=== PATIENT | female | born 1950 | race Caucasian/White ===

== ENCOUNTER → 2018-01-17 11:31 | Outpatient (CLI) | payer MEDICARE, OTHER, SELFPAY ==
--- NOTE | 2018-01-17 | XR_ITS ---
XR ribs RT 2V HISTORY: ITS.REASON: RT POSTERIOR CHEST WALL PAIN ORDERING PHYSICIAN: Emanuel Domingo MD PATIENT AGE: 67 years Comparison: None FINDINGS: A frontal view of the chest shows no acute finding. Multiple views of the Left ribs were obtained. No fracture or dislocation. No lytic or blastic change. IMPRESSION: Negative RIBS. If pain persists, consider follow-up exam in 7-[address] with 3-D reformats.
--- NOTE | 2018-01-17 11:56 | XR_ITS ---
XR chest 2V HISTORY: ITS.REASON: RT POSTERIOR CHEST WALL PAIN ORDERING PHYSICIAN: Emanuel Domingo MD PATIENT AGE: 67 years COMPARISON: 05/29/2014 FINDINGS: The cardiomediastinal silhouette and pulmonary vascularity are within normal limits. The lungs are clear without infiltrates, suspicious nodules, or pleural effusions. No acute bony abnormalities. IMPRESSION: Negative chest, no acute finding
== END ==
PROVIDERS: PCP Family Medicine; Visit Provider Family Medicine
DX: R07.89 Other chest pain (principal)
CPT/HCPCS: 71046; 71100

== ENCOUNTER → 2018-02-05 07:13 | Outpatient (CLI) | payer MEDICARE, OTHER, SELFPAY ==
--- NOTE | 2018-02-05 07:15 | NM_ITS ---
SPECT MYOCARDIAL PERFUSION SCAN, REST AND STRESS: EXERCISE STRESS: [facility] REVIEW QGS EF AND WALL MOTION EVALUATION: QPS - PERFUSION EVALUATION: HISTORY: Chest pain PROCEDURE: Rest imaging performed after administration of10.18 millicuries Tc MIBI. Dose administered at7:30 a.m., with imaging thereafter. Stress imaging was then performed following9 minutes of exercise stress. The patient achieved a heart [id number] with projected heart rate of146 . Resting BP152/85 with stress 204/85. At maximum exercise stress,31.2 millicuries Tc MIBI administered at8:45 a.m. with [id number] minutes thereafter. FINDINGS: Perfusion Evaluation: The single slice spect images as well as the [facility] bull's-eye data summary were reviewed. Wall Motion and Ejection Fraction Evaluation: Gated SPECT review and analysis used to evaluate these features. There is a 71 % left ventricular ejection fraction. There seems to be good wall motion Decreased myocardial activity in the anterior wall with both stress and rest. Gated images calculated ejection fraction of 71% with normal wall motion IMPRESSION: Excellent exercise capacity with no EKG abnormalities during exercise. This test is most consistent with breast attenuation and appears to be normal study. Normal ejection fraction normal wall motion
--- NOTE | 2018-02-05 07:34 | HMH.ITSHM ---
METOPROLOL ROSUVASTATIN MONTELUKAST XYZAL DYMISTA CALCIUM PROBIOTIC
== END ==
PROVIDERS: PCP Family Medicine; Visit Provider Family Medicine
DX: R07.2 Precordial pain (principal)
CPT/HCPCS: 78452; 93017; A9502

== ENCOUNTER → 2019-01-30 09:06 | Outpatient (CLI) | payer MEDICARE, OTHER, SELFPAY ==
--- NOTE | 2019-01-30 09:13 | MM_ITS ---
PROCEDURE: MM DIG SCREENING MAMM BI W/CAD CLINICAL INDICATION: SCREENING There is no partial or family history of breast cancer. There has been a previous cyst aspiration left breast for benign disease. COMPARISON: MG SCREENING MAMMOGRAM from 10/20/2002 MG SCREENING MAMMOGRAM from 05/23/2005 DMSB DIG MAMM-SCREEN JULIO CESAR from 07/01/2015 TECHNIQUE: Standard CC and MLO images were obtained. R2 CAD reviewed. FINDINGS: Prominent diffuse fibroglandular densities are seen in both breasts and the findings of bladder when symmetrical. There are scattered benign-appearing micro and macrocalcifications in each breast. There is a mole marker on each breast. There is no suspicious lesion on the no suspicious microcalcifications. There are fatty replaced nodes in both axilla. IMPRESSION: Moderately dense parenchymal pattern with no suspicious lesions seen BI-RAD Category: 2 Benign Finding(s) FOLLOW-UP: 1YR 1 Year Follow-up (A letter has been sent to the patient regarding results of the study.) Dictated by: Dr. Miko Gunderson MD 02/02/2019 20:50 Signed by: <Electronically signed by Dr. Miko Gunderson MD in [place]> 02/02/2019 20:50
--- NOTE | 2019-01-30 09:14 | XR_ITS ---
PROCEDURE: XR DEXA AXIAL SKELETON CLINICAL HISTORY: POST MENOPAUSAL COMPARISON: No exams were available for comparison TECHNIQUE: FINDINGS: L1-L4 density is 1.209 grams/centimeters sq. T-score is 0.2. The radius 33 percent density is 0.726 grams/centimeters sq with a T-score of -1.8. Left femoral neck density is 0.759 grams/centimeters sq with T-score -2 consistent with osteopenia. IMPRESSION: Osteopenia with moderate fracture risk. Treatment advised. Suggest follow-up exam January 2021 Dictated by: Gurmeet Salazar MD 01/30/2019 16:08 Signed by: <Electronically signed by Gurmeet Salazar MD in [place]> 01/30/2019 16:08
== END ==
PROVIDERS: PCP Family Medicine; Visit Provider Family Medicine
DX: Z12.31 Encounter for screening mammogram for malignant neoplasm of breast (principal); Z78.0 Asymptomatic menopausal state
CPT/HCPCS: 77067; 77080

== ENCOUNTER → 2020-03-15 14:39 | Outpatient (CLI) | payer MEDICARE, OTHER, SELFPAY | PROVIDERS: PCP Nurse Practitioner Family; Visit Provider Nurse Practitioner Family | DX: Z03.818 Encounter for observation for suspected exposure to other biological agents ruled out (principal) | CPT/HCPCS: U0003 ==

== ENCOUNTER → 2020-11-11 10:05 | Outpatient (CLI) | payer MEDICARE, OTHER, SELFPAY ==
--- NOTE | 2020-11-11 10:09 | MM_ITS ---
PROCEDURE INFORMATION: Exam: MG Screening 3D Mammography Exam date and time: 11/11/2020 10:09 AM Age: 70 years old Clinical indication: Encounter for screening mammogram for malignant neoplasm of breast TECHNIQUE: Imaging protocol: Screening tomosynthesis and 2D mammography including computer-aided detection (CAD) when performed. COMPARISON: 1. MG MM DIG SCREENING MAMM BI W/CAD 01/30/2019 9:28 AM 2. MG DMSB DIG MAMM-SCREEN JULIO CESAR 07/01/2015 9:53 AM FINDINGS: MAMMOGRAPHY: Breast composition: The breast tissue is heterogeneously dense, which may obscure small masses. Mass: None. Architectural distortion: None. Calcifications: No suspicious calcifications. Asymmetric density: None. Skin thickening: None. Axillary adenopathy: None. IMPRESSION: No mammographic evidence of malignancy. Annual screening is recommended unless otherwise clinically indicated. ASSESSMENT: BI-RADS Category 1: Negative
== END ==
PROVIDERS: PCP Family Medicine; Visit Provider Family Medicine
DX: Z12.31 Encounter for screening mammogram for malignant neoplasm of breast (principal)
CPT/HCPCS: 77063; 77067

== ENCOUNTER → 2021-03-07 08:40 | Outpatient (CLI) | payer MEDICARE, OTHER, SELFPAY ==
--- NOTE | 2021-03-07 08:43 | XR_ITS ---
PROCEDURE: XR DEXA AXIAL SKELETON CLINICAL HISTORY: OSTEOPENIA COMPARISON: JENNI,WILBERT BONE3 BONE DENSITOMETRY(HIP:LT SPINE from 07/01/2015 FINDINGS: The left hip BMD is 0.680 with a T-score of -1.5. The lumbar spine BMD is 1.024 with a T-score of -0.2. Radius 1/3 density is 0.526 with a T-score -2.8. Previously the lowest density was in the left femoral neck with a T-score of -1.7. Previous radius 33 percent T-score was -1.0. IMPRESSION: This patient is considered osteoporotic according to the World Health Organization criteria. Fracture risk is high. Treatment is advised. Based on these results a follow-up exam is recommended in 1 year. Dictated by: Gurmeet Salazar MD 03/07/2021 17:20 Gurmeet Salazar MD in [place] 03/07/2021 17:20
== END ==
PROVIDERS: PCP Family Medicine; Visit Provider Family Medicine
DX: M85.89 Other specified disorders of bone density and structure, multiple sites (principal)
CPT/HCPCS: 77080

== ENCOUNTER → 2021-05-15 13:55 | Outpatient (CLI) | payer MEDICARE, OTHER, SELFPAY ==
[2021-05-15 15:29] LABS: Adenovirus,PCR Not Detected (NotDetected); Bordetella Pertussis Not Detected (NotDetected); Chlamydophila Pneumoniae, PCR Not Detected (NotDetected); Coronavirus 19, PCR Not Detected (NotDetected); Coronavirus 229E Not Detected (NotDetected); Coronavirus NL63 Not Detected (NotDetected); Coronavirus OC43 Not Detected (NotDetected); Coronovirus HKU1,PCR Not Detected (NotDetected); Human Metapneumovirus Not Detected (NotDetected); Influenza A, PCR Not Detected (NotDetected); Influenza AH1, 2009 Not Detected (NotDetected); Influenza AH1, PCR Not Detected (NotDetected); Influenza AH3,PCR Not Detected (NotDetected); Influenza B, PCR Not Detected (NotDetected); Mycoplasma Pneumoniae, PCR Not Detected (NotDetected); Parainfluenza 1, PCR Not Detected (NotDetected); Parainfluenza 2, PCR Not Detected (NotDetected); Parainfluenza 3, PCR Not Detected (NotDetected); Parainfluenza 4, PCR Not Detected (NotDetected); Respiratory Syncytial Virus Not Detected (NotDetected); Rhinovirus/Enterovirus Not Detected (NotDetected)
[2021-05-15 15:49] LABS: Basophils # 0.1 K/mm3 (0-0.2); Basophils % 0.5 % (0.1-2.0); Eosinophils # 0.2 K/mm3 (0.0-0.4); Eosinophils % 1.7 % (0.1-12.0); Hematocrit 43.1 % (37.0-47.0); Hemoglobin 14.6 g/dL (12.2-16.2); Lymphocytes # 1.8 K/mm3 (0.7-4.5); Mean Corpuscular HGB Conc 33.9 g/dL (31.8-35.4); Mean Corpuscular Hemoglobin 29.7 pg (27.0-31.2); Mean Corpuscular Volume 87.4 fl (81-99); Monocytes # 0.7 K/mm3 (0.1-1.0); Monocytes % 6.9 % (1.7-9.3); Neutrophils # 7.4 K/mm3 (1.8-7.8); Platelet Count 259 K/mm3 (142-424); Red Blood Count 4.93 M/mm3 (4.20-5.40); Red Cell Distribution Width 12.8 % (11.5-17.5); White Blood Count 10.1 K/mm3 (4.8-10.8)
== END ==
PROVIDERS: PCP Nurse Practitioner Family; Visit Provider Nurse Practitioner Family
DX: Z20.822 Contact with and (suspected) exposure to COVID-19 (principal)
CPT/HCPCS: 36415; 85025; 87581; 87632; 87798; C9803; U0003; U0005

== ENCOUNTER → 2021-12-15 09:37 | Outpatient (CLI) | payer MEDICARE, OTHER, SELFPAY ==
--- NOTE | 2021-12-15 09:42 | MR_ITS ---
FINAL REPORT CLINICAL HISTORY: VERTIGO. DIZZINESS AND OCCIPITAL HEAD TWITCHING FOR 9 MONTHS. NO INJURY OR HEADACHE. MILD HEADACHE. 15ML PROHANCE GIVEN. FINDINGS: Multiplanar MR imaging of the brain was performed without and with contrast. There is no evidence of intracranial hemorrhage or mass. There are mild to moderate scattered foci in the deep white matter, particularly the subcortical region. No abnormal extra-axial fluid collection is seen. The ventricular size is within normal limits. There is no evidence of shift of the midline structures. The posterior fossa and brainstem have an unremarkable appearance. No area of abnormal restricted diffusion is identified. No abnormal contrast enhancement is seen. The 7th and 8th nerve root complexes appear intact. IMPRESSION: Mild to moderate changes of chronic microvascular ischemia. Reviewed, Interpreted and Dictated by Ellis Painting MD Transcribed by Carola Vu Authenticated and [facility]
[2021-12-15 10:01] LABS: Blood Urea Nitrogen 13 mg/dl (7-17); Estimated Glomerular Filt Rate 82 ml/min (>60); GFR (African American) 100 ML/MIN (>60)
== END ==
PROVIDERS: PCP Nurse Practitioner Family; Visit Provider Family Medicine
DX: R42 Dizziness and giddiness (principal); R20.2 Paresthesia of skin
CPT/HCPCS: 36415; 70553; 82565; 84520; A9576

== ENCOUNTER → 2022-03-26 08:12 | Outpatient (CLI) | payer MEDICARE, OTHER, SELFPAY ==
--- NOTE | 2022-03-26 08:16 | XR_ITS ---
FINAL REPORT TECHNIQUE: Bone densitometry calculations of the lumbar spine, forearm and hip were obtained. CLINICAL HISTORY: osteoporosis COMPARISON: 03/07/2021 FINDINGS: DEXA BONE DENSITY AXIAL SKELETON Using L1-4, the bone mineral density of the spine is 1.052 g/cm2, corresponding to T-score of 0.0. Previously measured 1.024 g/cm2, corresponding to T-score of -0.2. Note these values may be falsely elevated secondary to hypertrophic changes. Using the left hip, the bone mineral density of the femoral neck is 0.662 g/cm2, corresponding to a T-score of -1.7. Previously measured 0.680 g/cm2, corresponding to T-score of -1.5. Using the right forearm, the bone mineral density of the distal 1/3 is 0.552 g/cm2, corresponding to a T-score of -2.4. Previously measured 0.526 g/cm2, corresponding to T-score of -2.8. NOTE: T-score: Standard deviation compared with peak bone mass of young adult mean. *Following the recommendations of the International Society of Bone densitometry, classification of hip BMD is based on the lower of two T-scores; total hip or femoral neck. IMPRESSION: Diminished bone mineral density of the forearm and hip consistent with osteopenia. FRAX 10 year fracture risk is 3.8% for a hip fracture and 21% for a major osteoporotic fracture. Reviewed, Interpreted and Dictated by Rigoberto Bose III, MD Transcribed by Jacklyn Mendoza Authenticated and [facility]
--- NOTE | 2022-03-26 08:16 | MM_ITS ---
PROCEDURE INFORMATION: Exam: MG Bilateral Screening 3D Mammography Exam date and time: 03/26/2022 8:19 AM Age: 71 years old Clinical indication: Screening examination. No family history of breast cancer. TECHNIQUE: Imaging protocol: Bilateral Screening tomosynthesis and 2D mammography including computer-aided detection (CAD) when performed. COMPARISON: 1. MG MM DIG SCREENING MAMM BI W/CAD 11/11/2020 10:43 AM 2. MG MM DIG SCREENING MAMM BI W/CAD 01/30/2019 9:28 AM 3. MG DMSB DIG MAMM-SCREEN JULIO CESAR 07/01/2015 9:53 AM 4. MG SCREENING MAMMOGRAM 05/23/2005 11:48 AM FINDINGS: MAMMOGRAPHY: Breast composition: The breasts are heterogeneously dense, which may obscure small masses. Mass: No suspicious mass. Architectural distortion: None. Calcifications: No suspicious calcifications. Asymmetric density: None. Skin thickening: None. Axillary adenopathy: None. IMPRESSION: No mammographic evidence of malignancy. Annual screening is recommended unless otherwise clinically indicated. ASSESSMENT: BI-RADS Category 1: Negative
== END ==
PROVIDERS: PCP Family Medicine; Visit Provider Family Medicine
DX: M81.0 Age-related osteoporosis without current pathological fracture (principal)
CPT/HCPCS: 77063; 77067; 77080

== ENCOUNTER 2022-03-26 17:23 | Emergency (ER) | payer MEDICARE, OTHER, SELFPAY ==
[2022-03-26 17:24] VITALS: BP 141/92; PULSE 94; RESP 18; TEMP 37; O2SAT 97; BMI 29.2
[2022-03-26 19:43] LABS: UTC Influenza A Antigen Negative (Negative); UTC Influenza B Antigen Negative (Negative); UTC Strep Screen (Rapid) Negative (Negative)
--- NOTE | 2022-03-26 19:49 | EXP.UTC ---
Discharge Plan Disposition Patient Disposition: Home, Self-Care Condition: Good Prescriptions Prescriptions: New cefdinir 300 mg capsule 300 mg PO BID Qty: 20 0RF Referrals Follow up/Referrals: Emanuel Domingo MD [Primary Care Provider] - See instructions Activity Restrictions/Add. Instructions Additional Instructions/Restrictions: *Monitor Temp, Over the counter Motrin or Tylenol as directed/as needed Tylenol every 4 hours and Motrin every 6 hours (as long as your family doctor has told you that you can take it) for fever or pain. and straight to ER if unable to lower temp less than 101.0 after medication given *Warm salt water gargles may help to soothe the throat *Throat Lozenges? *Warm fluids like tea with honey may help to soothe the throat? *Sleep elevated *Humidifier/Vaporizer Take medication as prescribed Your throat swab was sent for culture. Those results are typically sent to your primary care. Be sure to follow up in 2-3 days with your family doctor/primary care physician if no improvement so they can review those result and treat if necessary. If you don?t have a primary care doctor, I recommend you get one but in the mean time, you will have to return to a walk in clinic Follow up IMMEDIATELY for new or worsening symptoms or no Noticeable improvement over the next 48-72 hours. 911 for difficulty breathing or swallowing You were tested for today for COVID19 your test result should be back in the next 24-48 hours, you may check your results on the [facility] Clinical Impressions Clinical Impression: Otitis media Instructions Patient Instructions: Middle Ear Infection, Cefdinir Discharge ED Provider: Aliya Larsen [facility] HPI General Stated complaint: chills,Sore throat,cough,KRISHNA congestion Mode of Arrival: Ambulatory Source of Information: Patient Limitations: No Limitations Time Seen by Provider: 03/26/22 19:49 Description of Symptoms (Recalled from Triage Doc. by RN): fever throat body ache cough HEENT Symptoms (Recalled from RN notes): Yes Resp Symptoms (Recalled from RN notes): Yes Skin Symptoms (Recalled from RN notes): No MS Symptoms (Recalled from RN notes): No Functional Status (Recalled from RN notes): n/a History of Present Illness Provider Complaint: Patient states that she started feeling bad on Saturday having fever, cough, sore throat, sinus congestion and pressure pain in both ears and feeling achy all over States that today she was still feeling bad so she was worried that she may have strep or flu Related Data Previous Rx's Medication Instructions Recorded cefdinir 300 mg capsule 300 mg PO BID #20 caps 03/26/22 Allergies Allergy/AdvReac Type Severity Reaction Status Date / Time No Known Allergies Allergy Verified 03/26/22 19:48 Worker's Comp Is this a Worker's Comp case?: No PFSH PFSH Social History Smoking Status: Never smoker alcohol intake: never current occupational status: retired Travel in the last 8 weeks: None ROS Obtained: Yes All systems reviewed & no additional complaints except as documented and Yes Systems reviewed as appropriate & no additional complaints except as documented Constitutional Constitutional: Reports system reviewed and no additional complaints, except as documented, Reports as per HPI, Reports body ache, Reports chills, Reports fever(s) and Reports headache(s) ENT Ears, Nose, Mouth, and Throat: Reports system reviewed and no additional complaints, except as documented, Reports as per HPI, Reports otalgia, Reports headache(s), Reports nasal congestion, Reports sinus pressure and Reports sore throat Cardiovascular Cardiovascular: Reports system reviewed and no additional complaints, except as documented and Reports as per HPI Respiratory Respiratory: Reports system reviewed and no additional complaints, except as documented and Reports as per HPI Neurologic Neurologic: Reports headach
[2022-03-26 20:13] VITALS: BP 141/92; PULSE 94; RESP 18; TEMP 37; O2SAT 97
== END 2022-03-26 20:13 | disposition home or self-care (01) ==
PROVIDERS: Emergency Provider Nurse Practitioner; PCP Family Medicine
DX: U07.1 COVID-19 (principal); H66.93 Otitis media, unspecified, bilateral; J02.9 Acute pharyngitis, unspecified; R50.9 Fever, unspecified; M79.10 Myalgia, unspecified site; R51.9 Headache, unspecified
CPT/HCPCS: 77063; 77067; 77080; 87804; 87880; 99213; C9803; G0463; U0003; U0005

== ENCOUNTER → 2022-10-16 09:03 | Outpatient (CLI) | payer MEDICARE, OTHER, SELFPAY ==
--- NOTE | 2022-10-16 09:07 | US_ITS ---
FINAL REPORT CLINICAL HISTORY: SUPRAPUBIC PAIN FINDINGS: Transvaginal sonographic images of the pelvis were obtained. The uterus measures 6 X 3.7 X 2.3 cm. The endometrium measures 3 mm, which is within normal limits. No uterine mass is identified. The right ovary measures 2.2 cm in length and left ovary measures 1.5 cm in length. Normal blood flow seen to the ovaries. There is a 0.9 cm right ovarian cyst. There is no evidence of free fluid. IMPRESSION: Small cyst in the right ovary. Reviewed, Interpreted and Dictated by Rigoberto Bose III, MD Transcribed by Candelaria Yadav Authenticated and [facility]
--- NOTE | 2022-10-16 09:07 | US_ITS ---
FINAL REPORT CLINICAL HISTORY: URINARY FREQUENCY FINDINGS: ULTRASOUND URINARY BLADDER Limited images of the urinary bladder were obtained. No mass is identified. Normal ureteral jets are visualized. Filled bladder volume: 178.45 mL Postvoid residual: 20 mL IMPRESSION: Small amount of postvoid residual. Otherwise normal exam. Reviewed, Interpreted and Dictated by Rigoberto Bose III, MD Transcribed by Candelaria Yadav Authenticated and . [facility]
== END ==
PROVIDERS: PCP Family Medicine; Visit Provider Physician Assistant
DX: R10.2 Pelvic and perineal pain (principal); R35.0 Frequency of micturition
CPT/HCPCS: 76830; 76857

== ENCOUNTER → 2023-03-27 09:30 | Outpatient (CLI) | payer MEDICARE, OTHER, SELFPAY ==
--- NOTE | 2023-03-27 09:34 | MM_ITS ---
PROCEDURE INFORMATION: Exam: MG Bilateral Screening 3D Mammography Exam date and time: 03/27/2023 9:39 AM Age: 72 years old Clinical indication: Screening mammogram TECHNIQUE: Imaging protocol: Bilateral Screening tomosynthesis and 2D mammography including computer-aided detection (CAD) when performed. COMPARISON: 1. MG MM DIG SCREENING MAMM BI W/CAD 03/26/2022 8:19 AM 2. MG MM DIG SCREENING MAMM BI W/CAD 11/11/2020 10:43 AM 3. MG MM DIG SCREENING MAMM BI W/CAD 01/30/2019 9:28 AM 4. MG DMSB DIG MAMM-SCREEN JULIO CESAR 07/01/2015 9:53 AM FINDINGS: MAMMOGRAPHY: Breast composition: There are scattered areas of fibroglandular density. Mass: None. Architectural distortion: No new or suspicious architectural distortion. Calcifications: Stable benign-appearing calcifications are present. No new or suspicious cluster of microcalcifications have developed. Asymmetric density: No new or suspicious asymmetric density is present Skin thickening: None. Axillary adenopathy: None. IMPRESSION: No mammographic evidence of malignancy. Recommend annual screening mammography unless otherwise clinically indicated. ASSESSMENT: BI-RADS category 2: Benign
== END ==
PROVIDERS: PCP Family Medicine; Visit Provider Family Medicine
DX: Z12.31 Encounter for screening mammogram for malignant neoplasm of breast (principal)
CPT/HCPCS: 77063; 77067

== ENCOUNTER 2024-02-27 10:01 | Outpatient (CLI) | payer MEDICARE, OTHER, SELFPAY ==
--- NOTE | 2024-02-27 10:07 | XR_ITS ---
FINAL REPORT CLINICAL HISTORY: right knee pain COMPARISON: None FINDINGS: RIGHT KNEE Three views demonstrate no acute fracture or dislocation. The joint spaces appear normal. No acute soft tissue abnormality is seen. IMPRESSION: No acute process. Reviewed, Interpreted and Dictated by Ti Delvalle MD Transcribed by Brittney Medina Authenticated and [facility]
== END 2024-02-27 23:59 | disposition home or self-care (01) ==
LOC: RAD 10:04
PROVIDERS: PCP Family Medicine; Visit Provider Physician Assistant Surgical
DX: M25.561 Pain in right knee (principal); M17.11 Unilateral primary osteoarthritis, right knee
CPT/HCPCS: 73562

== ENCOUNTER 2024-04-01 09:06 | Outpatient (CLI) | payer MEDICARE, OTHER, SELFPAY ==
--- NOTE | 2024-04-01 09:10 | XR_ITS ---
FINAL REPORT TECHNIQUE: Bone densitometry calculations of the lumbar spine and left hip were obtained. CLINICAL HISTORY: post menopausal FINDINGS: Using L1-4, the bone mineral density of the spine is 1.040 g/cm2, corresponding to T-score of -0.1. Using the left hip, the bone mineral density of the femoral neck is 0.735 g/cm2, corresponding to a T-score of -1.0. Using the right hip, the bone mineral density of the femoral neck is 0.540 g/cm?, corresponding to a T-score of -2.6. NOTE: T-score: Standard deviation compared with peak bone mass of young adult mean. *Following the recommendations of the International Society of Bone Densitometry, classification of hip BMD is based on the lower of two T-scores; total hip or femoral neck. IMPRESSION: Osteoporosis: Lowest T-score is at or below -2.5. This patient's T-score meets the World Health Organization criteria for osteoporosis. However, as the other scores are within normal limits, this is of uncertain significance and may represent artifact. Recommend follow-up bone density determination. Reviewed, Interpreted and Dictated by Rigoberto Bose III, MD Transcribed by Silvia Carballo Authenticated and . [facility]
--- NOTE | 2024-04-01 09:10 | MM_ITS ---
PROCEDURE INFORMATION: Exam: MG Bilateral Screening 3D Mammography Exam date and time: 04/01/2024 8:56 AM Age: 73 years old Clinical indication: Screening examination TECHNIQUE: Imaging protocol: Bilateral Screening tomosynthesis and 2D mammography including computer-aided detection (CAD) when performed. COMPARISON: 1. MG MM DIG SCREENING MAMM BI W/CAD 03/27/2023 9:39 AM 2. MG MM DIG SCREENING MAMM BI W/CAD 03/26/2022 8:19 AM FINDINGS: MAMMOGRAPHY: Breast composition: There are scattered areas of fibroglandular density. Mass: None. Architectural distortion: None. Calcifications: No suspicious calcifications. Asymmetric density: None. Skin thickening: None. Axillary adenopathy: None. IMPRESSION: No mammographic evidence of malignancy. Annual screening is recommended unless otherwise clinically indicated. ASSESSMENT: BI-RADS Category 1: Negative.
== END 2024-04-01 23:59 | disposition home or self-care (01) ==
LOC: RAD 09:06
PROVIDERS: PCP Family Medicine; Visit Provider Family Medicine
DX: M81.0 Age-related osteoporosis without current pathological fracture (principal); Z12.31 Encounter for screening mammogram for malignant neoplasm of breast; M85.80 Other specified disorders of bone density and structure, unspecified site
CPT/HCPCS: 77063; 77067; 77080

== ENCOUNTER 2024-07-16 03:07 | Emergency (ER) | payer MEDICARE, OTHER, SELFPAY ==
[2024-07-16] VITALS (14 sets, daily range): BP systolic 112–165; BP diastolic 62–76; PULSE 63–89; RESP 15–22; TEMP 36.6; O2SAT 94–99; BMI 30.2
--- NOTE | 2024-07-16 03:10 | ECG_ITS ---
APPROVED REPORT Exam: Resting ECG HR:82 bpm ECG Measurements Heart Rate [address] 137 P 59 QRSd 93 QRS 44 QT 368 T 65 QTc 406 Conclusion SINUS RHYTHM LOW QRS VOLTAGE IN PRECORDIAL LEADS [QRS DEFLECTION < 1.0 mV IN CHEST LEADS] POSSIBLE RIGHT VENTRICULAR CONDUCTION DELAY [RSR (QR) IN V1/V2] No STEMI Electronically signed by : DAVID COX, 07/16/2024 07:20:35
--- NOTE | 2024-07-16 03:23 | CT_ITS ---
PROCEDURE INFORMATION: Exam: CTA Chest With Contrast Exam date and time: 07/16/2024 4:16 AM Age: 74 years old Clinical indication: Pain; Chest pressure; Additional info: Chest pain radiating across shoulders TECHNIQUE: Imaging protocol: Computed tomographic angiography of the chest with contrast. Exam focused on the arteries. 3D rendering (Not supervised by radiologist): MIP and/or 3D reconstructed images were created by the technologist. Radiation optimization: All CT scans at this facility use at least one of these dose optimization techniques: automated exposure control; mA and/or kV adjustment per patient size (includes targeted exams where dose is matched to clinical indication); or iterative reconstruction. Contrast material: ISOVUE; Contrast volume: 80 ml; Contrast route: INTRAVENOUS (IV); COMPARISON: CR Chest 07/16/2024 3:58 AM FINDINGS: Pulmonary arteries: Normal. No pulmonary emboli. Aorta: Unremarkable. No aortic aneurysm. No aortic dissection. Lungs: Unremarkable. No consolidation. No masses. Pleural spaces: Unremarkable. No pneumothorax. No pleural effusion. Heart: Aortic valve calcifications. Coronary arteries: Coronary atherosclerosis. Lymph nodes: Unremarkable. No enlarged lymph nodes. Gallbladder and biliary ducts: Cholecystectomy. Bones/joints: Unremarkable. No acute fracture. Soft tissues: Unremarkable. IMPRESSION: 1. No evidence of pulmonary embolus. 2. Coronary atherosclerosis.
--- NOTE | 2024-07-16 03:23 | XR_ITS ---
PROCEDURE INFORMATION: Exam: XR Chest Exam date and time: 07/16/2024 3:58 AM Age: 74 years old Clinical indication: Pain; Chest pressure; Additional info: Chest pain TECHNIQUE: Imaging protocol: Radiologic exam of the chest. Views: 2 views. COMPARISON: CR CXR2V XR chest 2V 01/17/2018 12:04 PM FINDINGS: Lungs: Unremarkable. No consolidation. Pleural spaces: Unremarkable. No pleural effusion. No pneumothorax. Heart/Mediastinum: Unremarkable. No cardiomegaly. Bones/joints: Unremarkable. IMPRESSION: No acute findings.
[2024-07-16] MEDS: NITROGLYCERIN 0.4MG SL TABLET 0.4 MG SL (03:25)
[2024-07-16] MEDS: ASPIRIN 81MG CHEWABLE TABLET 324 MG PO (03:25)
[2024-07-16] MEDS: BELLADONNA ALKALOIDS 60 ML ML PO (03:26)
--- NOTE | 2024-07-16 03:36 | [facility].EDCP ---
Discharge Plan Disposition Patient Disposition: Home, Self-Care Condition: Good Prescriptions Prescriptions: No Action metoprolol succinate 50 mg tablet extended release 24 hr 50 mg PO DAILY rosuvastatin 10 mg tablet 10 mg PO DAILY montelukast 10 mg tablet 10 mg PO DAILY levocetirizine [Xyzal] 5 mg tablet 5 mg PO DAILY fluticasone propionate [Allergy Relief (fluticasone)] 50 mcg/actuation spray,suspension 1 spray intranasal DAILY Rx Instructions: administer into each nostril azelastine 205.5 mcg (0.15 %) spray,non-aerosol 1 spray intranasal HS Rx Instructions: administer into each nostril meloxicam 7.5 mg tablet 7.5 mg PO DAILY Qty: 30 2RF Referrals Follow up/Referrals: Provider,MD Radha [Primary Care Provider] - See instructions Darinel Phillips MD [Staff Physician] - See instructions (Chest pain, atherosclerosis seen on CT scan, reassuring cardiac workup in ER) Activity Restrictions/Add. Instructions Additional Instructions/Restrictions: You were evaluated in the ER and are appropriate for discharge at this time. Continue your home medications as prescribed. Please make an appointment with your primary care doctor for immediate reevaluation. Also call the elementary art teacher for an appointment. You have been referred to them for this purpose. Return to the ER with new, worsening, or otherwise concerning symptoms. Clinical Impressions Clinical Impression: Chest pain, Coronary atherosclerosis Print Language Print Language: Greenlandic Discharge ED Provider: Marielena Spain General Chief Complaint: Chest Pain Stated Complaint: chest pain Time Seen by Provider: 07/16/24 03:14 Mode of Arrival: Ambulatory Source of Information: Patient Limitations: No Limitations Description of Symptoms (Recalled from ER Triage Doc. by RN): Patient reports chest and back pain that also extends into the neck. States she has midsternal chest pressure. States she had this same pain around two weeks ago. History of Present Illness HPI narrative: 74-year-old female with history of hypertension and high cholesterol but no previous known cardiac history, no stroke, presents to the ER with chest and back pain. She reports she had this same pain approximately 2 weeks ago that resolved after taking Pepcid. She states tonight her pain started around midnight, approximately 3 hours prior to arrival. She states the pain feels like pressure in her chest and she has discomfort across both of her shoulders and back. She does not describe a tearing pain, the pain does not radiate up into her neck or down into her abdomen, she denies dizziness, numbness, tingling, weakness, difficulty breathing, nausea, vomiting, abdominal pain, diarrhea, fevers, chills, or other associated symptoms. Patient states when her pain was persistent, she got up to check her blood pressure which was elevated in the 170s, she was going to take Pepcid but forgot and instead brought herself to the ER accompanied by her for further evaluation. She does report her pain is currently a 5 out of 10 and has improved some since it started. Related Data Home Medications ?Medication ?Instructions ?Recorded ?Confirmed azelastine 205.5 mcg (0.15 %) 1 spray intranasal HS 07/06/22 07/16/24 nasal spray fluticasone propionate 50 1 spray intranasal DAILY 07/06/22 07/16/24 mcg/actuation nasal spray,suspension (Allergy Relief (fluticasone)) levocetirizine 5 mg tablet (Xyzal) 5 mg PO DAILY 07/06/22 07/16/24 metoprolol succinate 50 mg 50 mg PO DAILY 07/06/22 07/16/24 tablet,extended release 24 hr montelukast 10 mg tablet 10 mg PO DAILY 07/06/22 07/16/24 rosuvastatin 10 mg tablet 10 mg PO DAILY 07/06/22 07/16/24 Previous Rx's ?Medication ?Instructions ?Recorded meloxicam 7.5 mg tablet 7.5 mg PO DAILY #30 tabs 02/27/24 Allergies Allergy/AdvReac Type Severity Reaction Status Date / Time sulfamethoxazole (From AdvReac Mild Verified 02/27/24 11:07 Bactrim) trimethoprim (From Bactrim) AdvReac Mild Verified 02/27/24 11:07 [facility] Disclaimer: The information contained in this section may have been updated after the patient was seen, as this information can be updated by other users. Medical History Ovarian cyst, right Vulvar abscess Cyst of breast Allergies Asthma Hyperlipemia History of hypertension Surgical History History of appendectomy History of cholecystectomy History of right hip replacement Family History Other Asthma Cancer Coronary artery disease Diabetes Heart attack Hyperlipidemia Hypertension Kidney disease Social History Smoking Status: Never smoker alcohol intake: never current occupational status: retired Travel in the last 8 weeks: None Other Medical History Have you received the Pneumonia Vaccine: Yes ROS Obtained: Yes Systems reviewed as appropriate & no additional complaints except as documented Per HPI Physical Exam General General appearance: alert and in no apparent distress Head Head exam: atraumatic and normocephalic Eye Eye exam: Present PERRL and EOMI ENT ENT exam: Present mucous membranes moist Neck Neck exam: Present normal inspection, full ROM and other (Tenderness along trapezius muscles bilaterally with no evidence of injury, no midline tenderness, no pain up into the neck) Chest Chest inspection: Present symmetric chest wall rise and tenderness (Tenderness along lower left sternal border without traumatic findings) Respiratory Respiratory exam: Present normal lung sounds bilaterally; Absent respiratory distress, wheezes or stridor Cardiovascular Cardiovascular exam: Present regular rate and normal rhythm Abdominal Exam Abdominal exam: Present soft; Absent distention or tenderness Extremities Exam Extremities exam: Present full ROM Neurological Exam Neurological exam: Present alert and oriented X3; Absent motor sensory deficit Psychiatric Psychiatric exam: Present normal affect and normal mood Skin Skin exam: Present warm and dry HEART Score HEART Score HEART Score assessment performed?: Yes History (anamnesis): Slightly suspicious ECG: Non-specific disturbance Age: >65 years Risk factors: 1-2 risk factors Troponin: </= normal limit HEART Score: 4 Critical Care Critical Care Time Critical Care Time: No Medical Decision Making Medical Records Medical records reviewed: Yes I reviewed the patient's medical records. MR Comment: Most recent visit in our system was with Dr. Conn with orthopedics in February 2024. Patient was evaluated for right knee pain. Patient was identified to have osteoarthritis and opted for anti-inflammatories instead of steroid injection at that time. Octavio Inquiry Pt receiving controlled substance: No Vital Signs Vital Signs: 07/16/24 03:07 07/16/24 03:11 07/16/24 03:23 Temperature 97.9 F Temperature Source Oral Pulse Rate 77 89 Pulse Rate [Right Radial] 89 Respiratory Rate 18 Blood Pressure 165/76 H Blood Pressure [Right Arm] 165/76 H Blood Pressure Mean [Right Arm] 105 Blood Pressure Source [Right Arm] Automatic Cuff Blood Pressure Position [Right Arm] Supine 02 Sat by Pulse Oximetry 99 99 Oxygen Delivery Method Room Air 07/16/24 03:31 07/16/24 03:45 07/16/24 04:00 Temperature Temperature Source Pulse Rate 72 63 64 Pulse Rate [Right Radial] Respiratory Rate 22 15 16 Blood Pressure 129/76 129/76 112/68 Blood Pressure [Right Arm] Blood Pressure Mean [Right Arm] Blood Pressure Source [Right Arm] Blood Pressure Position [Right Arm] 02 Sat by Pulse Oximetry 94 L 94 L 94 L Oxygen Delivery Method Room Air 07/16/24 04:30 07/16/24 05:01 07/16/24 05:30 Temperature Temperature Source Pulse Rate 73 76 73 Pulse Rate [Right Radial] Respiratory Rate Blood Pressure 138/71 122/69 121/69 Blood Pressure [Right Arm] Blood Pressure Mean [Right Arm] Blood Pressure Source [Right Arm] Blood Pressure Position [Right Arm] 02 Sat by Pulse Oximetry 94 L 97 99 Oxygen Delivery Method Room Air Room Air 07/16/24 05:45 07/16/24 06:00 07/16/24 06:30 Temperature Temperature Source Pulse Rate 69 69 68 Pulse Rate [Right Radial] Respiratory Rate Blood Pressure 115/62 123/72 Blood Pressure [Right Arm] Blood Pressure Mean [Right Arm] Blood Pressure Source [Right Arm] Blood Pressure Position [Right Arm] 02 Sat by Pulse Oximetry 96 98 98 Oxygen Delivery Method Room Air 07/16/24 07:00 Temperature Temperature Source Pulse Rate 65 Pulse Rate [Right Radial] Respiratory Rate Blood Pressure 120/67 Blood Pressure [Right Arm] Blood Pressure Mean [Right Arm] Blood Pressure Source [Right Arm] Blood Pressure Position [Right Arm] 02 Sat by Pulse Oximetry 98 Oxygen Delivery Method Room Air Lab Data Labs: Lab Results 07/16/24 03:10: WBC 11.6 H, RBC 5.19, Hgb 15.2, Hct 44.7, MCV 86.1, MCH 29.3, MCHC 34.0, RDW 12.6, Plt Count 260, MPV 10.4, Neut % (Auto) 61.2, Lymph % (Auto) 27.6, Routt % (Auto) 8.9, Eos % (Auto) 1.6, Baso % (Auto) 0.4, Neut # (Auto) 7.1, Lymph # (Auto) 3.2, Routt # (Auto) 1.0, Eos # (Auto) 0.2, Baso # (Auto) 0.1, PT 10.1, INR 0.89 L, Sodium 142, Potassium 3.9, Chloride 103, Carbon Dioxide 26, Anion Gap 16.9 H, BUN 14, Creatinine 0.80, Estimated Creat Clear 58, Estimated GFR 70, Est GFR ( Amer) 85, Glucose 121 H, Calcium 9.3, Total Bilirubin 1.6 H, AST 34, ALT 22, Alkaline Phosphatase 84, Troponin I < 0.01, NT-Pro-B Natriuret Pep 71.3, Total Protein 7.3, Albumin 4.5, Globulin 2.8, Albumin/Globulin Ratio 1.6 07/16/24 06:03: Troponin I < 0.01 07/16/24 03:10 07/16/24 03:10 Response Orders (Tests/Meds): ED MEDICATIONS Generic Name Dose Route Start Last Admin Trade Name Freq PRN Reason Stop Dose Admin Nitroglycerin 0.4 mg 07/16/24 03:23 07/16/24 03:25 Nitroglycerin 0.4mg Sl Tablet SL 07/17/24 03:23 0.4 mg Q5MINP PRN Administration Chest Pain Discontinued Medications Generic Name Dose Route Start Last Admin Trade Name Freq PRN Reason Stop Dose Admin Aspirin 324 mg 07/16/24 03:23 07/16/24 03:25 Aspirin 81mg Chewable Tablet PO 07/16/24 03:24 324 mg ONCE ONE Administration Belladonna Alkaloids 60 ml 07/16/24 03:23 07/16/24 03:26 Belladonna Alkaloids 60 Ml Ml PO 07/16/24 03:24 60 ml ONCE ONE Administration Iopamidol 80 ml 07/16/24 04:21 07/16/24 04:22 Iopamidol-370 (76%);100ml Bottle IV 07/16/24 04:22 80 ml ONCE ONE Administration Sodium Chloride 50 ml 07/16/24 04:21 07/16/24 04:23 0.9 % Sodium Chloride 50 Ml Vial IV 07/16/24 04:22 50 ml ONCE ONE Administration Sodium Chloride 10 ml 07/16/24 04:21 07/16/24 04:22 Sodium Chloride 0.9% 10ml Syr (Rad Only) IV 07/16/24 04:22 10 ml ONCE ONE Administration ORDERS Category Date Time Status CTA Chest [CT angio chest - dissection] Stat Cat Scan 07/16/24 03:23 Completed CXR 2 view (NOT portable) [XR chest 2V] Stat Exams 07/16/24 03:23 Completed Complete Blood Count Auto Diff Stat Lab 07/16/24 03:10 Completed Comprehensive Metabolic Panel Stat Lab 07/16/24 03:10 Completed NT Pro Brain Natriuretic Pep. Stat Lab 07/16/24 03:10 Completed Prothrombin Time INR Stat Lab 07/16/24 03:10 Completed Troponin I Q3H Lab 07/16/24 06:03 Completed Troponin I Q3H Lab 07/16/24 09:30 Ordered Troponin I Stat Lab 07/16/24 03:10 Completed MDM Narrative Medical Decision Narrative: In summary, this 74-year-old female presents to the emergency department today with chest pain as well as pain in the back of the shoulders. On initial evaluation patient is hemodynamically stable, afebrile, she does have tenderness to palpation along the lower left sternal border without evidence of trauma, patient has tenderness of the bilateral trapezius without evidence of trauma, no tenderness of the neck, cardiopulmonary exam benign, no peripheral edema, abdominal exam benign. Differential diagnosis includes but is not limited to ACS, PE, dissection, muscle spasm, musculoskeletal etiology, esophageal spasm, electrolyte abnormality, dehydration. Based on these concerns, I ordered serum labs, cardiac workup, CT angiography of the chest. ECG personally interpreted demonstrates normal sinus rhythm, rate 82, normal axis, normal VT and QTc, no STEMI. Patient received aspirin, single dose of sublingual nitro, GI cocktail for treatment. On reassessment after these medications, patient reports some improvement of the pain in her chest and back. Her blood pressure has improved compared to arrival. Labs personally reviewed demonstrate leukocytosis with WBC 11.6, remainder of CBC normal, PT/INR nonactionable, CMP nonactionable, patient does have slightly elevated bilirubin at 1.6, troponin undetectably low less than 0.01. XR personally interpreted demonstrates no acute intrathoracic abnormality, see radiology read for final interpretation. CT imaging personally interpreted demonstrate no aortic dissection, no pulmonary embolism, no obvious parenchymal abnormality, see radiology read for final interpretation. Radiology read does mention coronary atherosclerosis On reassessment patient reports she has had further improvement of her symptoms. Repeat troponin is pending. Patient was placed into ED observation at 0500 for continued observation, serial troponins to rule out evolving OR and preclude unnecessary admission. Patient remained on the teletypesetter monitor and continued to have stable vitals. Her pain completely resolved. Repeat troponin also undetectably low less than 0.01. Patient was updated on all results. She remains asymptomatic. Vital stable. I believe she is appropriate for discharge at this time. I placed referral to cardiology for outpatient follow-up and gave her instructions for close follow-up with her primary care doctor as well as strict return precautions for the ER. She indicated understanding and the patient was discharged in stable condition. Total time in ED observation: 2 hours 8 minutes
[2024-07-16 03:39] LABS: Basophils # 0.1 K/mm3 (0-0.2); Basophils % 0.4 % (0.1-2.0); Eosinophils # 0.2 K/mm3 (0.0-0.4); Eosinophils % 1.6 % (0.1-12.0); Hematocrit 44.7 % (37.0-47.0); Hemoglobin 15.2 g/dL (12.2-16.2); Lymphocytes # 3.2 K/mm3 (0.7-4.5); Lymphocytes % 27.6 % (10-50); Mean Corpuscular Hemoglobin 29.3 pg (27.0-31.2); Mean Corpuscular Volume 86.1 fl (81-99); Mean Platelet Volume 10.4 fl (7.4-10.4); Monocytes % 8.9 % (1.7-9.3); Neutrophils # 7.1 K/mm3 (1.8-7.8); Neutrophils % 61.2 % (37.0-80.0); Platelet Count 260 K/mm3 (142-424); Red Blood Count 5.19 M/mm3 (4.20-5.40); Red Cell Distribution Width 12.6 % (11.5-17.5); White Blood Count 11.6 K/mm3 (4.8-10.8)
[2024-07-16 03:46] LABS: INR 0.89 (0.9-1.1); Prothrombin Time 10.1 seconds (10.1-12.5)
--- NOTE | 2024-07-16 03:47 | PC.NURSE ---
Rounded on patient; resting
[2024-07-16 04:09] LABS: Alanine Aminotransferase 22 U/L (12-78); Albumin Level 4.5 g/dl (3.5-5.0); Albumin/Globulin Ratio 1.6 (1.1-1.8); Alkaline Phosphatase 84 U/L (38-126); Anion Gap 16.9 mEq/L (5-15); Aspartate Amino Transferase 34 U/L (14-36); Bilirubin,Total 1.6 mg/dl (0.2-1.3); Blood Urea Nitrogen 14 mg/dl (7-17); Calcium 9.3 mg/dl (8.4-10.2); Carbon Dioxide 26 mmol/L (22.0-30.0); Chloride 103 mmol/L (98-107); Creatinine Clearance Estimated 58 mL/min (50-200); Estimated Glomerular Filt Rate 70 ml/min (>60); GFR (African American) 85 ML/MIN (>60); Globulin 2.8 g/dL (1.3-3.2); Glucose 121 mg/dl (74-100); Potassium 3.9 mmoL/L (3.5-5.1); Sodium 142 mmol/L (136-145); Total Protein,Serum 7.3 g/dl (6.3-8.2)
[2024-07-16 04:21] LABS: NT Pro Brain Natriuretic Pep. 71.3 pg/mL (0-125)
[2024-07-16 04:22] LABS: Troponin I < 0.01 ng/ml (0.00-0.034)
[2024-07-16] MEDS: IOPAMIDOL-370 (76%);100ML BOTTLE 80 ML IV (04:22)
[2024-07-16] MEDS: SODIUM CHLORIDE 0.9% 10ML SYR (RAD ONLY) 10 ML IV (04:22)
[2024-07-16] MEDS: 0.9 % SODIUM CHLORIDE 50 ML VIAL IV (04:23)
--- NOTE | 2024-07-16 04:48 | PC.NURSE ---
Rounding done; patient resting
--- NOTE | 2024-07-16 05:08 | PC.NURSE ---
Rounding done; patient states no needs at this time
--- NOTE | 2024-07-16 06:05 | PC.NURSE ---
rounding done; patient resting
--- NOTE | 2024-07-16 06:22 | PC.NURSE ---
Patient has been rounded on. Patient states no needs at this time. Family is at bedside.
[2024-07-16 06:35] LABS: Troponin I < 0.01 ng/ml (0.00-0.034)
== END 2024-07-16 07:19 | disposition home or self-care (01) ==
PROVIDERS: Emergency Provider Emergency Medicine
DX: I25.10 Atherosclerotic heart disease of native coronary artery without angina pectoris (principal); R07.9 Chest pain, unspecified; M54.9 Dorsalgia, unspecified; M54.2 Cervicalgia
CPT/HCPCS: 71046; 71275; 80053; 83880; 84484; 85025; 85610; 93005; 99285; Q9967

== ENCOUNTER 2024-08-04 11:26 | Outpatient (CLI) | payer MEDICARE, OTHER, SELFPAY ==
--- NOTE | 2024-08-04 | CA_ITS ---
APPROVED REPORT Exam: Pharmacologic Technologist: Gissel Randle Ht: 5 ft 2 in Wt: 170 lbs BSA: 1.78 m2 Stress Test Details Test: Lexiscan Reason for pharmacologic stress test: physical limitation. HR Resting HR: 80 bpm Max Heart Rate (APMHR): 146.717150 bpm Max HR Achieved: 118 bpm Target HR (85% APMHR): 124.157736 bpm % of APMHR: 80.82 Recovery HR: 101 bpm BP Resting BP: 158.0/79.0 mmHg Max BP: 167.0/76.0 mmHg Recovery BP: 143.0/70.0 mmHg ECG Stress ECG Conclusion Symptoms: No SOA. Flushed with Lexiscan. Chest pressure in recovery. Arrhythmias/Ectopy: none. ST-T Changes: unremarkable due to Lexiscan. Electronically signed by : Rody Phillips MD 08/06/2024 00:00:25
--- NOTE | 2024-08-04 11:27 | CA_ITS ---
APPROVED REPORT EXAM: Comprehensive 2D, Doppler, and color-flow Echocardiogram Hair Spinner: Cari Crenshaw RT(R) Ht: 5 ft 2 in Wt: 170lbs BSA: 1.78 BP: 153/82 mmHg Indications: angina, CP, HTN, hyperlipidemia, fatigue, numbness in bilateral hands 2D Dimensions LVEF (Dhaliwal's) 76.40 % F: 54 - 74 LV Volume 56.80 mL F: 46 - 106 LV Volume Index 31.7 mL/m2 F: 29 - 61 LA Volume 17.50 mL LA Volume Index 9.78 mL/m2 (M/F) 16-34 EF AP4 76.50 % EF AP2 66.8 % EF BP 76.4 % GL Strain -23.9 % M-Mode Dimensions RVDd 2.90 cm (0.9-2.6) LA Diam 3.30 cm (1.9-4.0) LVDd 3.79 cm (3.5-5.7) LVDs 2.58 cm (3.5-5.7) IVSd 0.86 cm (0.6-1.1) PWd 0.72 cm (0.6-1.1) EF (Teich) 60.90% FS 31.90% EDV (Teich) 61.60 mL ESV (Teich) 24.10 mL LV Diastology E Decel Time 207 (160-240 msec) E/A Ratio 1.0 Mitral Valve MV E Max Gume. 82.0 (40-130 cm/s) MV A Velocity 85.0 (40-130 cm/s) E/A Ratio 0.96 MV PHT 61.0 ms Left Ventricle The left ventricle is normal size. The left ventricular systolic function is normal. The left ventricular ejection fraction is within the normal range. There is increased LV wall thickness. There is normal LV segmental wall motion. Transmitral Doppler flow pattern suggests impaired LV relaxation. LVEF is 60%. Right Ventricle Right ventricle is mildly dilated. The right ventricular systolic function is normal. Atria The left atrium size is normal. The right atrium size is normal. No Doppler evidence of interatrial shunt. Aortic Valve The aortic valve is mildly thickened. There is no aortic valvular stenosis. No aortic regurgitation is present. Mitral Valve The mitral valve is normal in structure. No evidence of mitral valve stenosis. There is no mitral valve regurgitation noted. Tricuspid Valve Tricuspid valve is grossly normal in structure and function. Trace tricuspid regurgitation. There is insufficient TR jet to estimate RVSP. Pulmonic Valve The pulmonary valve is normal in structure. Trace pulmonic regurgitation. Great Vessels The aortic root is normal in size. IVC is normal in size and collapses >50% with inspiration. Pericardium There is no pericardial effusion. Other Information Study Quality: Fair Conclusion Normal biventricular systolic function. Mild RV dilation. No significant valvular stenosis or regurgitation. Electronically signed by : Rody Phillips MD 08/11/2024 11:37:20
--- NOTE | 2024-08-04 11:27 | NM_ITS ---
APPROVED REPORT Exam: Nuclear Stress Test Indication: angina..palpitations..fatigue Patient Location: Outpatient Stress Tech: Gissel Marin [facility] Tech:Britany Nguyễn TRAY RT(R)(N) Ht: 5 ft 2 in Wt: 165 lbs Bra Size: 38dd HR: 80 bpm BP: 158/79 mmHg BSA: 1.76 m2 TID: 0.91 BMI: 30.1 History: angina..palpitations..fatigue Procedure: Patient received 0.4 mg of intravenous Lexiscan, resting heart rate 80 bpm, resting blood pressure 158/79 mmHg, with Lexiscan maximum heart rate achieved was 119 bpm which is 85 % of the maximum predicted heart rate and blood pressure was 167/76 mmHg. With Lexiscan, patient denied any complaint of chest pain. Cardiac Stress and Resting SPECT Images: Cardiac Stress and Resting SPECT images were obtained using technetium 99m Myoview 31.3 mCi stress and 10.87 mCi at rest. Resting and stress imaging in supine and prone positions demonstrate no evidence of fixed or reversible perfusion defects. Gated imaging demonstrates normal global and regional LV systolic function. LVEF is calculated at > 75%. Conclusion: No evidence of fixed or reversible perfusion defects. Gated imaging demonstrates normal global and regional LV systolic function. LVEF is calculated at > 75%. Electronically signed by : Rody Phillips MD 08/05/2024 23:52:54
[2024-08-04] MEDS: ISOTOPE MYOVIEW (PER STUDY) 1 DOSE IV (13:42)
[2024-08-04] MEDS: SODIUM CHLORIDE 0.9% 10ML SYR (RAD ONLY) 10 ML IV ×2 (13:42)
[2024-08-04] MEDS: REGADENOSON 0.4MG/5ML SYRINGE 0.4 MG IV (13:42)
== END 2024-08-04 23:59 | disposition home or self-care (01) ==
LOC: RAD 11:27
PROVIDERS: PCP Family Medicine; Visit Provider Internal Medicine
DX: I51.7 Cardiomegaly (principal); I25.10 Atherosclerotic heart disease of native coronary artery without angina pectoris; R07.9 Chest pain, unspecified; R53.83 Other fatigue
CPT/HCPCS: 78452; 93017; 93018; 93306; A9502; J2785

== ENCOUNTER 2025-04-21 09:03 | Outpatient (CLI) | payer MEDICARE, OTHER, SELFPAY ==
--- NOTE | 2025-04-21 09:11 | MM_ITS ---
PROCEDURE INFORMATION: Exam: MG Bilateral Screening 3D Mammography Exam date and time: 04/21/2025 9:17 AM Age: 74 years old Clinical indication: Screening examination TECHNIQUE: Imaging protocol: Bilateral Screening tomosynthesis and 2D mammography including computer-aided detection (CAD) when performed. COMPARISON: 1. MG MM DIG SCREENING MAMM BI W/CAD 04/01/2024 8:56 AM 2. MG MM DIG SCREENING MAMM BI W/CAD 03/27/2023 9:39 AM FINDINGS: MAMMOGRAPHY: Breast composition: The breasts are heterogeneously dense, which may obscure small masses. Mass: No suspicious masses. Architectural distortion: None. Calcifications: No suspicious calcifications. Asymmetric density: None. Skin thickening: None. Axillary adenopathy: None. IMPRESSION: No mammographic evidence of malignancy. Annual screening is recommended unless otherwise clinically indicated. ASSESSMENT: BI-RADS Category 1: Negative.
--- NOTE | 2025-04-21 09:11 | XR_ITS ---
FINAL REPORT CLINICAL HISTORY: SCREENING COMPARISON: 04/01/2024 FINDINGS: Using L1-4, the bone mineral density of the spine is 1.014 g/cm2, corresponding to T-score of -0.3, within normal limits. Previously was 1.040 with a T-score of -0.1. Using the left hip, the bone mineral density of the femoral neck is 0.681 g/cm2, corresponding to a T-score of -1.5, consistent with osteopenia. Previously was 0.735 with a T-score of -1.0. Using the right forearm, the bone mineral density of the 1/3 is 0.510 g/cm2, corresponding to a T-score of -3.1, consistent with osteoporosis. Previously was 0.540 with a T-score of -2.6. FRAX 10 year fracture risk is 4.3% for a hip fracture and 21% for a major osteoporotic fracture. NOTE: T-score: Standard deviation compared with peak bone mass of young adult mean. *Following the recommendations of the International Society of Bone densitometry, classification of hip BMD is based on the lower of two T-scores; total hip or femoral neck. IMPRESSION: Diminished bone mineral density consistent with osteopenia in the left hip and osteoporosis in the right forearm. Reviewed, Interpreted and Dictated by Ellis Painting MD Transcribed by Britney Eid Authenticated and . [facility]
== END 2025-04-21 23:59 | disposition home or self-care (01) ==
LOC: RAD 09:03
PROVIDERS: PCP Family Medicine; Visit Provider Family Medicine
DX: Z12.31 Encounter for screening mammogram for malignant neoplasm of breast (principal); R92.333 Mammographic heterogeneous density, bilateral breasts; M81.0 Age-related osteoporosis without current pathological fracture
CPT/HCPCS: 77063; 77067; 77080